=== PATIENT | female | born 1930 | race African-American/Black ===

== ENCOUNTER 2017-11-30 16:42 | Inpatient (IN) | payer MEDICARE ==
[~2017-11-30] VITALS: Ht 160 cm; Wt 67.1 kg
[~2017-11-30 16:42] MED LIST: OLME1TAB30
[2017-11-30 18:15] LABS: HEMOGLOBIN. 10.6 g/dL (12.0-16.0); MEAN CORPUSCULAR HEMOGLOBIN 29.1 pg (28.0-32.0); MEAN CORPUSCULAR VOLUME 87.9 fL (81.0-99.0); MEAN PLATELET VOLUME 9.2 fl (7.4-10.4); PLATELET 226 x1000/uL (130-400); RED BLOOD CELL COUNT 3.64 mill/uL (4.2-5.4); RED CELL DISTRIBUTION WIDTH 15.8 % (11.6-14.6)
[2017-11-30 18:18] LABS: CHLORIDE 107 mEq/L (98-107)
[2017-11-30 18:19] LABS: INR 1.1
[2017-11-30] MEDS ORDERED: SODIUM CHLORIDE 0.9% 1000ML BAG (SEPSIS BOLUS) IV ONE (18:45)
[2017-11-30 18:46] LABS: PLATELET ESTIMATE NORMAL
[2017-12-01 04:37] LABS: CLARITY URINE TURBID (CLEAR); COLOR URINE ORANGE (YELLOW); KETONES URINE NEGATIVE (NEGATIVE); LEUKOCYTE ESTERASE URINE 3+ (NEGATIVE); NITRITE URINE NEGATIVE (NEGATIVE); OCCULT BLOOD URINE 3+ (NEGATIVE); PROTEIN URINE 2+ (NEGATIVE); SPECIFIC GRAVITY URINE 1.016 (1.005-1.030)
[2017-12-01 08:30] VITALS: BP 140/64
[2017-12-01 09:29] VITALS: BP 140/64
[2017-12-01] MEDS: DOCUSATE SODIUM 100MG CAPSULE PO SCH ×2 (10:00→17:00)
[2017-12-01] MEDS ORDERED: ONDANSETRON HCL 4MG/2ML VIAL IV PRN (10:30)
[2017-12-01] MEDS ORDERED: ACETAMINOPHEN 325MG TABLET PO PRN (10:30)
[2017-12-01] MEDS: CARVEDILOL 12.5MG TABLET PO SCH ×2 (11:21→20:55)
[2017-12-01] MEDS: HYDRALAZINE HCL 25MG TABLET PO SCH ×2 (11:22→20:55)
[2017-12-01] MEDS ORDERED: MVI, ADULT NO.1 10 ML in DEXT 5%/0.45% NACL 1000ML 1,000 ML IV SCH ×2 (12:00)
[2017-12-01 12:10] VITALS: BP 112/50
[2017-12-01 13:19] LABS: CREATINE KINASE 145 IU/L (26-192)
[2017-12-01 13:20] LABS: CREATINE KINASE MB FRACTION 3.6 ng/mL (0.5-3.6)
[2017-12-01 13:48] LABS: CLARITY URINE TURBID (CLEAR); COLOR URINE ORANGE (YELLOW); KETONES URINE NEGATIVE (NEGATIVE); LEUKOCYTE ESTERASE URINE 3+ (NEGATIVE); NITRITE URINE POSITIVE (NEGATIVE); OCCULT BLOOD URINE 3+ (NEGATIVE); PROTEIN URINE 2+ (NEGATIVE); SPECIFIC GRAVITY URINE 1.016 (1.005-1.030)
[2017-12-01] MEDS ORDERED: IPRATROPIUM/ALBUTEROL 0.5-3(2.5)MG/3ML NEB HHN PRN (15:15)
[2017-12-01 16:00] VITALS: BP 116/45
[2017-12-01 16:29] VITALS: BP 116/46
[2017-12-01] MEDS ORDERED: ZOSYN (PIPERACILLIN/TAZOBACTAM) XX SCH (18:00)
[2017-12-01 20:00] VITALS: BP 132/72
[2017-12-01] MEDS: PIPERACILLIN/TAZ 2.25G PREMIX 50 ML IV SCH (20:45)
[2017-12-01] MEDS: AMLODIPINE 10MG TABLET PO SCH (20:55)
[2017-12-01 22:16] LABS: CREATINE KINASE 146 IU/L (26-192)
[2017-12-01 22:17] LABS: CREATINE KINASE MB FRACTION 3.2 ng/mL (0.5-3.6)
[2017-12-01] MEDS: DEXT 5%/0.45% NACL 1000ML 1,000 ML IV SCH (23:59)
[2017-12-02] VITALS: BP 105/57
[2017-12-02] MEDS: PIPERACILLIN/TAZ 2.25G PREMIX 50 ML IV SCH ×2 (02:45→08:57)
[2017-12-02 04:00] VITALS: BP 106/44
[2017-12-02 06:02] LABS: INR 1.1; PROTHROMBIN TIME 11.3 sec (9.4-11.6)
[2017-12-02 06:09] LABS: HEMATOCRIT. 28.7 % (36.0-48.0); HEMOGLOBIN. 9.8 g/dL (12.0-16.0); MEAN CORPUSCULAR HEMOGLOBIN 29.8 pg (28.0-32.0); MEAN PLATELET VOLUME 9.1 fl (7.4-10.4); PLATELET 221 x1000/uL (130-400); RED CELL DISTRIBUTION WIDTH 16.1 % (11.6-14.6)
[2017-12-02 06:39] LABS: CHLORIDE 111 mEq/L (98-107)
[2017-12-02 06:48] LABS: CREATINE KINASE 169 IU/L (26-192); LDL CHOLESTEROL 57 mg/dL (5-100)
[2017-12-02 06:49] LABS: HDL CHOLESTEROL 13 mg/dL (40-59)
[2017-12-02 06:50] LABS: PHOSPHORUS 4.6 mg/dL (2.5-4.9)
[2017-12-02 06:56] LABS: CREATINE KINASE MB FRACTION 1.4 ng/mL (0.5-3.6)
[2017-12-02 06:57] LABS: TOTAL IRON BINDING CAPACITY 197 ug/dL (250-450)
[2017-12-02 06:58] LABS: T4 FREE 1.01 ng/dL (0.76-1.46)
[2017-12-02 07:41] VITALS: BP 106/48
[2017-12-02] MEDS: DEXT 5%/0.45% NACL 1000ML 1,000 ML IV SCH (08:56)
[2017-12-02] MEDS: CARVEDILOL 12.5MG TABLET PO SCH ×2 (09:00→21:12)
[2017-12-02] MEDS: HYDRALAZINE HCL 25MG TABLET PO SCH ×2 (09:00→21:11)
[2017-12-02] MEDS: DOCUSATE SODIUM 100MG CAPSULE PO SCH ×2 (09:00→17:00)
[2017-12-02] MEDS ORDERED: DEXT 5%/0.2% NACL 1,000 ML IV SCH (10:45)
[2017-12-02 11:28] VITALS: BP 107/48
[2017-12-02] MEDS: SODIUM BICARBONATE 100 MEQ in DEXT 5%/0.2% NACL 1,000 ML IV SCH (13:03)
[2017-12-02] MEDS ORDERED: PIPERACILLIN/TAZ 2.25G PREMIX 50 ML IV SCH (14:00)
[2017-12-02 15:15] VITALS: BP 111/51
[2017-12-02] MEDS: AMPICILLIN 2,000 MG in SODIUM CHLORIDE 0.9% 100 ML IV SCH (18:54)
[2017-12-02 19:07] LABS: PLATELET ESTIMATE NORMAL
[2017-12-02 20:00] VITALS: BP 120/57
[2017-12-02] MEDS: AMLODIPINE 10MG TABLET PO SCH (21:12)
[2017-12-03] VITALS: BP 115/52
[2017-12-03] MEDS: SODIUM BICARBONATE 100 MEQ in DEXT 5%/0.2% NACL 1,000 ML IV SCH (02:04)
[2017-12-03 04:00] VITALS: BP 122/88
[2017-12-03] MEDS: AMPICILLIN 2,000 MG in SODIUM CHLORIDE 0.9% 100 ML IV SCH ×2 (06:07→19:03)
[2017-12-03 08:00] VITALS: BP 127/49
[2017-12-03 08:10] LABS: CHLORIDE 111 mEq/L (98-107)
[2017-12-03 08:11] LABS: HEMATOCRIT. 28.9 % (36.0-48.0); HEMOGLOBIN. 9.6 g/dL (12.0-16.0); MEAN CORPUSCULAR HEMOGLOBIN 28.9 pg (28.0-32.0); MEAN CORPUSCULAR VOLUME 86.6 fL (81.0-99.0); MEAN PLATELET VOLUME 8.8 fl (7.4-10.4); PLATELET 234 x1000/uL (130-400); RED BLOOD CELL COUNT 3.34 mill/uL (4.2-5.4); RED CELL DISTRIBUTION WIDTH 15.8 % (11.6-14.6)
[2017-12-03 08:19] LABS: AMMONIA 34 uMol/L (<32)
[2017-12-03] MEDS: DOCUSATE SODIUM 100MG CAPSULE PO SCH ×2 (09:18→19:03)
[2017-12-03] MEDS: HYDRALAZINE HCL 25MG TABLET PO SCH ×2 (09:19→22:07)
[2017-12-03] MEDS: CARVEDILOL 12.5MG TABLET PO SCH ×2 (09:19→22:07)
[2017-12-03 09:25] LABS: ATYPICAL LYMPHOCYTES 1; PLATELET ESTIMATE NORMAL
[2017-12-03 09:59] LABS: HEPATITIS B SURFACE ANTIGEN NEGATIVE
[2017-12-03 10:27] LABS: HEPATITIS B CORE AB IGM NEGATIVE
[2017-12-03 10:29] LABS: HEPATITIS A AB IGM NEGATIVE (NEGATIVE)
[2017-12-03 12:00] VITALS: BP 109/53
[2017-12-03] MEDS: POTASSIUM ACETATE IV SCH (13:13)
[2017-12-03] MEDS: SODIUM BICARBONATE IV SCH (13:13)
[2017-12-03] MEDS: DEXT IV SCH (13:13)
[2017-12-03] MEDS: NACL IV SCH (13:13)
[2017-12-03 16:00] VITALS: BP 128/51
[2017-12-03 20:11] VITALS: BP 134/65
[2017-12-03] MEDS ORDERED: ALBUMIN HUMAN 12.5GM/50ML (25%) IV ONE (21:43)
[2017-12-03] MEDS: LACTULOSE 20G/30ML UDC PO SCH (22:07)
[2017-12-03] MEDS: AMLODIPINE 10MG TABLET PO SCH (23:30)
[2017-12-04] VITALS: BP 112/41
[2017-12-04] MEDS: ALBUMIN HUMAN 12.5GM/50ML (25%) IV SCH ×3 (00:26→18:22)
[2017-12-04] MEDS: DEXT IV SCH (00:50)
[2017-12-04] MEDS: NACL IV SCH (00:50)
[2017-12-04] MEDS: SODIUM BICARBONATE IV SCH (00:50)
[2017-12-04] MEDS: POTASSIUM ACETATE IV SCH (00:50)
[2017-12-04 04:38] VITALS: BP 127/64
[2017-12-04] MEDS: AMPICILLIN 2,000 MG in SODIUM CHLORIDE 0.9% 100 ML IV SCH ×2 (06:04→18:22)
[2017-12-04] MEDS: LACTULOSE 20G/30ML UDC PO SCH (06:07)
[2017-12-04 07:08] LABS: HEMOGLOBIN. 9.1 g/dL (12.0-16.0); MEAN CORPUSCULAR HEMOGLOBIN 29.1 pg (28.0-32.0); MEAN CORPUSCULAR VOLUME 86.5 fL (81.0-99.0); MEAN PLATELET VOLUME 8.6 fl (7.4-10.4); PLATELET 260 x1000/uL (130-400); RED BLOOD CELL COUNT 3.12 mill/uL (4.2-5.4); RED CELL DISTRIBUTION WIDTH 16.1 % (11.6-14.6)
[2017-12-04 07:28] LABS: CHLORIDE 107 mEq/L (98-107)
[2017-12-04 07:36] LABS: AMMONIA 32 uMol/L (<32)
[2017-12-04 07:48] LABS: PHOSPHORUS 3.7 mg/dL (2.5-4.9)
[2017-12-04 07:58] VITALS: BP 115/45
[2017-12-04 08:31] LABS: PREALBUMIN 6.7 mg/dL (20.0-40.0)
[2017-12-04] MEDS: CARVEDILOL 12.5MG TABLET PO SCH ×2 (09:00→21:24)
[2017-12-04] MEDS: DOCUSATE SODIUM 100MG CAPSULE PO SCH ×2 (09:00→18:21)
[2017-12-04] MEDS: HYDRALAZINE HCL 25MG TABLET PO SCH ×2 (09:00→21:24)
[2017-12-04 12:07] VITALS: BP 118/45
[2017-12-04] MEDS: DEXT 5%/0.45% NACL 1000ML 1,000 ML IV SCH ×2 (14:18→23:54)
[2017-12-04] MEDS ORDERED: KCL 20MEQ/100ML PREMIX 100 ML IV SCH (15:00)
[2017-12-04 16:00] VITALS: BP 142/69
[2017-12-04] MEDS ORDERED: LACTULOSE 20G/30ML UDC PO SCH (18:00)
[2017-12-04 19:09] LABS: PLATELET ESTIMATE NORMAL
[2017-12-04 20:18] VITALS: BP 146/60
[2017-12-04] MEDS: AMLODIPINE 10MG TABLET PO SCH (21:24)
[2017-12-05 00:09] VITALS: BP 129/48
[2017-12-05 04:47] VITALS: BP 145/60
[2017-12-05] MEDS: AMPICILLIN 2,000 MG in SODIUM CHLORIDE 0.9% 100 ML IV SCH (05:11)
[2017-12-05 06:42] LABS: BASOPHILS % 0.5 % (0.0-2.0); HEMATOCRIT. 27.4 % (36.0-48.0); HEMOGLOBIN. 9.4 g/dL (12.0-16.0); LYMPHOCYTES % 8.5 % (20.0-50.0); MEAN CORPUSCULAR HEMOGLOBIN 29.8 pg (28.0-32.0); MEAN CORPUSCULAR VOLUME 86.7 fL (81.0-99.0); MEAN PLATELET VOLUME 8.6 fl (7.4-10.4); MONOCYTES % 2.2 % (2.0-8.0); NEUTROPHILS % 86.8 % (40.0-76.0); PLATELET 287 x1000/uL (130-400); RED BLOOD CELL COUNT 3.16 mill/uL (4.2-5.4); RED CELL DISTRIBUTION WIDTH 16.1 % (11.6-14.6)
[2017-12-05 07:58] LABS: PHOSPHORUS 3.5 mg/dL (2.5-4.9)
[2017-12-05 08:51] VITALS: BP 151/61
[2017-12-05] MEDS: DEXT 5%/0.45% NACL 1000ML 1,000 ML IV SCH (09:29)
[2017-12-05] MEDS: CARVEDILOL 12.5MG TABLET PO SCH (09:30)
[2017-12-05] MEDS: DOCUSATE SODIUM 100MG CAPSULE PO SCH (09:31)
[2017-12-05] MEDS: ALBUMIN HUMAN 12.5GM/50ML (25%) IV SCH (09:31)
[2017-12-05] MEDS: HYDRALAZINE HCL 25MG TABLET PO SCH (09:31)
== END 2017-12-05 13:00 | DRG 871 ==
LOC: ER 18:44 → 6WST 20:21 → EDBEDREQ 20:24 → EDBEDREQTM 20:24
PROVIDERS: ADMIT Internal Medicine; ATTEND Internal Medicine
DX: A41.50 Gram-negative sepsis, unspecified (principal); E43 Unspecified severe protein-calorie malnutrition; N17.9 Acute kidney failure, unspecified; G92 Toxic encephalopathy; E87.5 Hyperkalemia; E86.0 Dehydration; R13.10 Dysphagia, unspecified; I27.20 Pulmonary hypertension, unspecified; N39.0 Urinary tract infection, site not specified; N13.30 Unspecified hydronephrosis; D64.9 Anemia, unspecified; I11.9 Hypertensive heart disease without heart failure; B96.20 Unspecified Escherichia coli [E. coli] as the cause of diseases classified elsewhere; E87.6 Hypokalemia; F03.90 Unspecified dementia, unspecified severity, without behavioral disturbance, psychotic disturbance, mood disturbance, and anxiety; I13.10 Hypertensive heart and chronic kidney disease without heart failure, with stage 1 through stage 4 chronic kidney disease, or unspecified chronic kidney disease; N18.9 Chronic kidney disease, unspecified; R26.9 Unspecified abnormalities of gait and mobility; Z68.26 Body mass index [BMI] 26.0-26.9, adult
CPT/HCPCS: 36415; 70450; 70551; 71045; 76770; 80048; 80053; 80061; 80076; 81003; 82140; 82550; 82553; 82570; 82607; 82746; 83036; 83540; 83550; 83605; 83690; 83735; 84100; 84134; 84300; 84439; 84443; 84481; 84484; 84540; 85025; 85610; 85651; 86705; 86709; 86803; 87040; 87077; 87086; 87186; 87340; 92610; 93005; 93306; 93970; 96360; 96361; 97116; 97162; 97166; 97530; 99291; C1893; J0290; J2543; J3480; J3490; J7030; J7050; P9047; A4315

== ENCOUNTER 2017-12-05 13:12 | Inpatient (IN) | payer MEDICARE ==
[~2017-12-05] VITALS: Ht 160 cm; Wt 67.1 kg
[2017-12-05 13:12] VITALS: BP 154/61
[2017-12-05] MEDS ORDERED: ONDANSETRON HCL 4MG TABLET PO PRN (14:30)
[2017-12-05] MEDS ORDERED: ACETAMINOPHEN 650MG/20.3ML UDC PO PRN (14:30)
[2017-12-05] MEDS ORDERED: IPRATROPIUM/ALBUTEROL 0.5-3(2.5)MG/3ML NEB HHN PRN (14:30)
[2017-12-05] MEDS: DOCUSATE SODIUM 100MG CAPSULE PO SCH (17:01)
[2017-12-05] MEDS: PANTOPRAZOLE 40MG DR TABLET PO SCH (17:01)
[2017-12-05] MEDS: ALBUMIN HUMAN 12.5GM/50ML (25%) IV SCH (17:54)
[2017-12-05] MEDS: LACTULOSE 20G/30ML UDC PO SCH (19:24)
[2017-12-05 20:00] VITALS: BP 147/65
[2017-12-05] MEDS: CARVEDILOL 12.5MG TABLET PO SCH (21:00)
[2017-12-05] MEDS: AMLODIPINE 10MG TABLET PO SCH (21:00)
[2017-12-05] MEDS: HYDRALAZINE HCL 25MG TABLET PO SCH (22:42)
[2017-12-06] MEDS: PANTOPRAZOLE 40MG DR TABLET PO SCH (06:29)
[2017-12-06 06:31] LABS: HEMATOCRIT. 28.2 % (36.0-48.0); HEMOGLOBIN. 9.4 g/dL (12.0-16.0); MEAN CORPUSCULAR HEMOGLOBIN 29.4 pg (28.0-32.0); MEAN CORPUSCULAR VOLUME 87.6 fL (81.0-99.0); MEAN PLATELET VOLUME 8.3 fl (7.4-10.4); PLATELET 330 x1000/uL (130-400); RED BLOOD CELL COUNT 3.22 mill/uL (4.2-5.4)
[2017-12-06 07:05] LABS: CHLORIDE 112 mEq/L (98-107)
[2017-12-06 07:09] LABS: AMMONIA < 10 uMol/L (<32)
[2017-12-06 07:22] LABS: PREALBUMIN 10.6 mg/dL (20.0-40.0)
[2017-12-06 08:00] VITALS: BP 145/56
[2017-12-06] MEDS: HYDRALAZINE HCL 25MG TABLET PO SCH ×2 (10:16→20:52)
[2017-12-06] MEDS: DOCUSATE SODIUM 100MG CAPSULE PO SCH ×2 (10:16→17:24)
[2017-12-06] MEDS: CARVEDILOL 12.5MG TABLET PO SCH ×2 (10:17→20:52)
[2017-12-06] MEDS: ALBUMIN HUMAN 12.5GM/50ML (25%) IV SCH ×2 (10:19→17:23)
[2017-12-06] MEDS ORDERED: LEVOFLOXACIN 500MG TABLET PO SCH (11:00)
[2017-12-06] MEDS ORDERED: POTASSIUM CHLORIDE 20MEQ TABLET SR PO NR (13:15)
[2017-12-06 15:47] LABS: ATYPICAL LYMPHOCYTES 1; PLATELET ESTIMATE NORMAL
[2017-12-06] MEDS: LACTULOSE 20G/30ML UDC PO SCH (17:25)
[2017-12-06 20:00] VITALS: BP 132/59
[2017-12-06] MEDS: AMLODIPINE 10MG TABLET PO SCH (20:51)
[2017-12-06 22:14] LABS: CLARITY URINE CLEAR (CLEAR); COLOR URINE YELLOW (YELLOW); KETONES URINE NEGATIVE (NEGATIVE); LEUKOCYTE ESTERASE URINE 1+ (NEGATIVE); NITRITE URINE NEGATIVE (NEGATIVE); OCCULT BLOOD URINE NEGATIVE (NEGATIVE); PROTEIN URINE TRACE (NEGATIVE); SPECIFIC GRAVITY URINE 1.014 (1.005-1.030); UROBILINOGEN URINE 0.2 E.U./dL (0.2-1.0)
[2017-12-07 07:51] LABS: BASOPHILS % 0.4 % (0.0-2.0); EOSINOPHILS % 0.9 % (0.0-5.0); HEMATOCRIT. 25.4 % (36.0-48.0); HEMOGLOBIN. 8.5 g/dL (12.0-16.0); LYMPHOCYTES % 9.9 % (20.0-50.0); MEAN CORPUSCULAR HEMOGLOBIN 29.2 pg (28.0-32.0); MEAN CORPUSCULAR VOLUME 87.1 fL (81.0-99.0); MONOCYTES % 5.2 % (2.0-8.0); NEUTROPHILS % 83.6 % (40.0-76.0); PLATELET 346 x1000/uL (130-400); RED BLOOD CELL COUNT 2.92 mill/uL (4.2-5.4); RED CELL DISTRIBUTION WIDTH 16.4 % (11.6-14.6)
[2017-12-07 08:00] VITALS: BP 133/68
[2017-12-07 08:17] LABS: PHOSPHORUS 3.2 mg/dL (2.5-4.9)
[2017-12-07] MEDS: ALBUMIN HUMAN 12.5GM/50ML (25%) IV SCH ×2 (08:18→17:51)
[2017-12-07] MEDS: CARVEDILOL 12.5MG TABLET PO SCH ×2 (08:19→21:10)
[2017-12-07] MEDS: DOCUSATE SODIUM 100MG CAPSULE PO SCH ×2 (08:20→17:51)
[2017-12-07] MEDS: FAMOTIDINE 20MG TABLET PO SCH (08:20)
[2017-12-07] MEDS: HYDRALAZINE HCL 25MG TABLET PO SCH ×2 (08:20→21:10)
[2017-12-07 10:03] LABS: FOLIC ACID (FOLATE) SERUM 12.4 ng/mL (>5.38)
[2017-12-07] MEDS: LEVOFLOXACIN 500MG TABLET PO SCH (10:24)
[2017-12-07] MEDS ORDERED: DEXT 5% WATER 500 ML IV ONE (12:00)
[2017-12-07 20:00] VITALS: BP 142/64
[2017-12-07] MEDS: AMLODIPINE 10MG TABLET PO SCH (21:10)
[2017-12-08 07:14] LABS: T4 FREE 1.11 ng/dL (0.76-1.46)
[2017-12-08 07:36] LABS: BASOPHILS % 0.6 % (0.0-2.0); EOSINOPHILS % 1.3 % (0.0-5.0); HEMATOCRIT. 24.6 % (36.0-48.0); HEMOGLOBIN. 8.3 g/dL (12.0-16.0); LYMPHOCYTES % 11.1 % (20.0-50.0); MEAN CORPUSCULAR HEMOGLOBIN 29.7 pg (28.0-32.0); MONOCYTES % 4.7 % (2.0-8.0); NEUTROPHILS % 82.3 % (40.0-76.0); PLATELET 360 x1000/uL (130-400); RED BLOOD CELL COUNT 2.79 mill/uL (4.2-5.4); RED CELL DISTRIBUTION WIDTH 16.5 % (11.6-14.6)
[2017-12-08 08:00] VITALS: BP 130/55
[2017-12-08] MEDS: FAMOTIDINE 20MG TABLET PO SCH (08:49)
[2017-12-08] MEDS: DOCUSATE SODIUM 100MG CAPSULE PO SCH ×2 (08:49→16:53)
[2017-12-08] MEDS: HYDRALAZINE HCL 25MG TABLET PO SCH ×2 (08:50→21:11)
[2017-12-08] MEDS: CARVEDILOL 12.5MG TABLET PO SCH ×2 (08:50→21:11)
[2017-12-08] MEDS: LEVOFLOXACIN 500MG TABLET PO SCH (12:12)
[2017-12-08 20:00] VITALS: BP 164/66
[2017-12-08] MEDS: AMLODIPINE 10MG TABLET PO SCH (21:00)
[2017-12-09 07:16] LABS: BASOPHILS % 0.9 % (0.0-2.0); EOSINOPHILS % 1.3 % (0.0-5.0); HEMATOCRIT. 25.7 % (36.0-48.0); HEMOGLOBIN. 8.6 g/dL (12.0-16.0); LYMPHOCYTES % 13.7 % (20.0-50.0); MEAN CORPUSCULAR HEMOGLOBIN 29.7 pg (28.0-32.0); MEAN CORPUSCULAR VOLUME 88.3 fL (81.0-99.0); MEAN PLATELET VOLUME 8.5 fl (7.4-10.4); MONOCYTES % 5.2 % (2.0-8.0); NEUTROPHILS % 78.9 % (40.0-76.0); PLATELET 413 x1000/uL (130-400); RED BLOOD CELL COUNT 2.91 mill/uL (4.2-5.4); RED CELL DISTRIBUTION WIDTH 16.9 % (11.6-14.6)
[2017-12-09 07:43] LABS: CHLORIDE 117 mEq/L (98-107)
[2017-12-09 07:51] LABS: TOTAL IRON BINDING CAPACITY 146 ug/dL (250-450)
[2017-12-09 08:00] VITALS: BP 141/90
[2017-12-09] MEDS: FAMOTIDINE 20MG TABLET PO SCH (08:24)
[2017-12-09] MEDS: DOCUSATE SODIUM 100MG CAPSULE PO SCH ×2 (08:24→16:20)
[2017-12-09] MEDS: CARVEDILOL 12.5MG TABLET PO SCH ×2 (08:25→20:52)
[2017-12-09] MEDS: HYDRALAZINE HCL 25MG TABLET PO SCH ×2 (08:25→20:51)
[2017-12-09] MEDS: LEVOFLOXACIN 500MG TABLET PO SCH (11:17)
[2017-12-09 12:26] LABS: CLARITY URINE CLEAR (CLEAR); COLOR URINE YELLOW (YELLOW); KETONES URINE NEGATIVE (NEGATIVE); LEUKOCYTE ESTERASE URINE 1+ (NEGATIVE); NITRITE URINE NEGATIVE (NEGATIVE); OCCULT BLOOD URINE NEGATIVE (NEGATIVE); PROTEIN URINE NEGATIVE (NEGATIVE); SPECIFIC GRAVITY URINE 1.016 (1.005-1.030); UROBILINOGEN URINE 0.2 E.U./dL (0.2-1.0)
[2017-12-09 20:00] VITALS: BP 126/72
[2017-12-09] MEDS: AMLODIPINE 10MG TABLET PO SCH (20:52)
[2017-12-10 06:54] LABS: EOSINOPHILS % 1.2 % (0.0-5.0); HEMATOCRIT. 24.2 % (36.0-48.0); HEMOGLOBIN. 8.1 g/dL (12.0-16.0); LYMPHOCYTES % 16.4 % (20.0-50.0); MEAN CORPUSCULAR HEMOGLOBIN 29.4 pg (28.0-32.0); MEAN CORPUSCULAR VOLUME 87.9 fL (81.0-99.0); MEAN PLATELET VOLUME 8.2 fl (7.4-10.4); MONOCYTES % 6.4 % (2.0-8.0); PLATELET 421 x1000/uL (130-400); RED BLOOD CELL COUNT 2.76 mill/uL (4.2-5.4); RED CELL DISTRIBUTION WIDTH 16.6 % (11.6-14.6)
[2017-12-10 07:43] LABS: AMMONIA 44 uMol/L (<32)
[2017-12-10 08:18] VITALS: BP 136/64
[2017-12-10] MEDS: DOCUSATE SODIUM 100MG CAPSULE PO SCH ×2 (08:51→17:34)
[2017-12-10] MEDS: FAMOTIDINE 20MG TABLET PO SCH (08:51)
[2017-12-10] MEDS: CARVEDILOL 12.5MG TABLET PO SCH ×2 (08:51→20:46)
[2017-12-10] MEDS: HYDRALAZINE HCL 25MG TABLET PO SCH ×2 (08:51→21:53)
[2017-12-10] MEDS: LEVOFLOXACIN 500MG TABLET PO SCH (11:41)
[2017-12-10] MEDS ORDERED: LACTULOSE 20G/30ML UDC PO STA (14:32)
[2017-12-10] MEDS ORDERED: BISACODYL 10MG SUPP PR PRN (14:45)
[2017-12-10] MEDS: NA PHOS,M-B/NA PHOS,DI-BA ENEMA 118ML PR NR ×3 (14:50→15:03)
[2017-12-10] MEDS ORDERED: LEVOFLOXACIN 250MG TABLET PO SCH (19:23)
[2017-12-10 20:00] VITALS: BP 156/61
[2017-12-10] MEDS: POLYETHYLENE GLYCOL 3350 (17GM) 1 DOSE PACK PO SCH (20:46)
[2017-12-10] MEDS: AMLODIPINE 10MG TABLET PO SCH (20:47)
[2017-12-10] MEDS: LACTULOSE 20G/30ML UDC PO SCH (21:53)
[2017-12-11] MEDS ORDERED: EPOETIN ALFA 10000UNITS/ML VIAL SUBCUT SCH (03:00)
[2017-12-11] MEDS: LACTULOSE 20G/30ML UDC PO SCH ×3 (05:03→21:23)
[2017-12-11 08:00] VITALS: BP 123/55
[2017-12-11] MEDS: HYDRALAZINE HCL 25MG TABLET PO SCH ×3 (09:00→21:24)
[2017-12-11] MEDS: CYANOCOBALAMIN/FA/PYRIDOXINE TABLET PO SCH (09:49)
[2017-12-11] MEDS: FERROUS GLUCONATE 324MG TABLET PO SCH ×3 (09:49→17:49)
[2017-12-11] MEDS: DOCUSATE SODIUM 100MG CAPSULE PO SCH ×2 (09:49→17:49)
[2017-12-11] MEDS: FAMOTIDINE 20MG TABLET PO SCH (09:49)
[2017-12-11] MEDS: CARVEDILOL 12.5MG TABLET PO SCH ×2 (09:49→21:24)
[2017-12-11 12:06] LABS: BASOPHILS % 0.8 % (0.0-2.0); EOSINOPHILS % 1.5 % (0.0-5.0); HEMATOCRIT. 24.9 % (36.0-48.0); HEMOGLOBIN. 8.3 g/dL (12.0-16.0); LYMPHOCYTES % 18.5 % (20.0-50.0); MEAN CORPUSCULAR HEMOGLOBIN 29.4 pg (28.0-32.0); MEAN CORPUSCULAR VOLUME 88.4 fL (81.0-99.0); MEAN PLATELET VOLUME 7.9 fl (7.4-10.4); MONOCYTES % 7.4 % (2.0-8.0); NEUTROPHILS % 71.8 % (40.0-76.0); PLATELET 432 x1000/uL (130-400); RED BLOOD CELL COUNT 2.81 mill/uL (4.2-5.4); RED CELL DISTRIBUTION WIDTH 16.7 % (11.6-14.6)
[2017-12-11 13:02] LABS: CHLORIDE 117 mEq/L (98-107)
[2017-12-11] MEDS: LEVOFLOXACIN 250MG TABLET PO SCH (13:04)
[2017-12-11 13:11] LABS: 25-HYDROXY VITAMIN D3 4.2 ng/mL (.)
[2017-12-11 13:14] LABS: AMMONIA 23 uMol/L (<32)
[2017-12-11] MEDS: CALCIUM CARBONATE/VITAMIN D3 500MG TABLET PO SCH (17:49)
[2017-12-11] MEDS: ERGOCALCIFEROL 50000UNITS CAPSULE PO SCH (17:55)
[2017-12-11 20:00] VITALS: BP 139/69
[2017-12-11] MEDS: POLYETHYLENE GLYCOL 3350 (17GM) 1 DOSE PACK PO SCH (21:00)
[2017-12-11] MEDS: AMLODIPINE 10MG TABLET PO SCH (21:24)
[2017-12-12] MEDS: LACTULOSE 20G/30ML UDC PO SCH ×3 (06:00→21:31)
[2017-12-12 08:00] VITALS: BP 134/56
[2017-12-12] MEDS: FAMOTIDINE 20MG TABLET PO SCH (08:46)
[2017-12-12] MEDS: CALCIUM CARBONATE/VITAMIN D3 500MG TABLET PO SCH ×2 (08:46→17:29)
[2017-12-12] MEDS: CYANOCOBALAMIN/FA/PYRIDOXINE TABLET PO SCH (08:46)
[2017-12-12] MEDS: FERROUS GLUCONATE 324MG TABLET PO SCH ×3 (08:46→17:29)
[2017-12-12] MEDS: DOCUSATE SODIUM 100MG CAPSULE PO SCH ×2 (08:46→17:29)
[2017-12-12] MEDS: CARVEDILOL 12.5MG TABLET PO SCH ×2 (08:47→21:26)
[2017-12-12] MEDS: HYDRALAZINE HCL 25MG TABLET PO SCH ×2 (08:48→23:34)
[2017-12-12] MEDS: LEVOFLOXACIN 250MG TABLET PO SCH (11:48)
[2017-12-12 20:00] VITALS: BP 142/38
[2017-12-12] MEDS: POLYETHYLENE GLYCOL 3350 (17GM) 1 DOSE PACK PO SCH (21:00)
[2017-12-12] MEDS: EPOETIN ALFA 10000UNITS/ML VIAL SUBCUT SCH (21:00)
[2017-12-12] MEDS: AMLODIPINE 10MG TABLET PO SCH (21:27)
[2017-12-13] MEDS: LACTULOSE 20G/30ML UDC PO SCH ×4 (05:54→21:24)
[2017-12-13 08:00] VITALS: BP 142/70
[2017-12-13] MEDS: FAMOTIDINE 20MG TABLET PO SCH (10:35)
[2017-12-13] MEDS: DOCUSATE SODIUM 100MG CAPSULE PO SCH ×2 (10:35→17:00)
[2017-12-13] MEDS: FERROUS GLUCONATE 324MG TABLET PO SCH ×3 (10:36→18:47)
[2017-12-13] MEDS: CALCIUM CARBONATE/VITAMIN D3 500MG TABLET PO SCH ×2 (10:36→18:47)
[2017-12-13] MEDS: CARVEDILOL 12.5MG TABLET PO SCH ×2 (10:36→21:23)
[2017-12-13] MEDS: HYDRALAZINE HCL 25MG TABLET PO SCH ×2 (10:36→21:23)
[2017-12-13] MEDS: CYANOCOBALAMIN/FA/PYRIDOXINE TABLET PO SCH (10:36)
[2017-12-13] MEDS: LEVOFLOXACIN 250MG TABLET PO SCH (11:00)
[2017-12-13 20:00] VITALS: BP 156/64
[2017-12-13] MEDS: POLYETHYLENE GLYCOL 3350 (17GM) 1 DOSE PACK PO SCH (21:24)
[2017-12-13] MEDS: AMLODIPINE 10MG TABLET PO SCH (21:24)
[2017-12-14] MEDS: LACTULOSE 20G/30ML UDC PO SCH ×4 (06:01→23:55)
[2017-12-14 06:24] LABS: BASOPHILS % 0.1 % (0.0-2.0); EOSINOPHILS % 1.6 % (0.0-5.0); HEMATOCRIT. 24.5 % (36.0-48.0); HEMOGLOBIN. 8.2 g/dL (12.0-16.0); LYMPHOCYTES % 24.9 % (20.0-50.0); MEAN CORPUSCULAR HEMOGLOBIN 29.8 pg (28.0-32.0); MEAN CORPUSCULAR VOLUME 88.9 fL (81.0-99.0); MEAN PLATELET VOLUME 8.5 fl (7.4-10.4); MONOCYTES % 7.2 % (2.0-8.0); NEUTROPHILS % 66.2 % (40.0-76.0); PLATELET 417 x1000/uL (130-400); RED BLOOD CELL COUNT 2.76 mill/uL (4.2-5.4); RED CELL DISTRIBUTION WIDTH 17.1 % (11.6-14.6)
[2017-12-14 07:09] LABS: CHLORIDE 115 mEq/L (98-107)
[2017-12-14 07:18] LABS: AMMONIA 40 uMol/L (<32); PHOSPHORUS 2.6 mg/dL (2.5-4.9)
[2017-12-14 08:32] VITALS: BP 138/87
[2017-12-14 08:50] LABS: CLARITY URINE CLEAR (CLEAR); COLOR URINE YELLOW (YELLOW); KETONES URINE NEGATIVE (NEGATIVE); LEUKOCYTE ESTERASE URINE NEGATIVE (NEGATIVE); NITRITE URINE NEGATIVE (NEGATIVE); OCCULT BLOOD URINE NEGATIVE (NEGATIVE); PH URINE 5.5 (4.5-8.0); PROTEIN URINE NEGATIVE (NEGATIVE); SPECIFIC GRAVITY URINE 1.011 (1.005-1.030); UROBILINOGEN URINE 0.2 E.U./dL (0.2-1.0)
[2017-12-14] MEDS: DOCUSATE SODIUM 100MG CAPSULE PO SCH ×2 (09:21→19:16)
[2017-12-14] MEDS: HYDRALAZINE HCL 25MG TABLET PO SCH ×2 (09:22→22:17)
[2017-12-14] MEDS: CALCIUM CARBONATE/VITAMIN D3 500MG TABLET PO SCH ×2 (09:22→19:16)
[2017-12-14] MEDS: FERROUS GLUCONATE 324MG TABLET PO SCH ×3 (09:22→19:16)
[2017-12-14] MEDS: CYANOCOBALAMIN/FA/PYRIDOXINE TABLET PO SCH (09:22)
[2017-12-14] MEDS: FAMOTIDINE 20MG TABLET PO SCH (09:22)
[2017-12-14] MEDS: CARVEDILOL 12.5MG TABLET PO SCH ×2 (09:22→23:54)
[2017-12-14] MEDS: LEVOFLOXACIN 250MG TABLET PO SCH (11:54)
[2017-12-14] MEDS: MAGNESIUM OXIDE 400MG TABLET PO SCH (19:19)
[2017-12-14 20:00] VITALS: BP 156/67
[2017-12-14] MEDS: POLYETHYLENE GLYCOL 3350 (17GM) 1 DOSE PACK PO SCH (21:00)
[2017-12-14] MEDS: AMLODIPINE 10MG TABLET PO SCH (22:17)
[2017-12-15] MEDS: LACTULOSE 20G/30ML UDC PO SCH ×3 (05:25→17:19)
[2017-12-15 06:42] LABS: AMMONIA 40 uMol/L (<32)
[2017-12-15 08:00] VITALS: BP 153/67
[2017-12-15] MEDS: CALCIUM CARBONATE/VITAMIN D3 500MG TABLET PO SCH ×2 (08:52→17:17)
[2017-12-15] MEDS: FERROUS GLUCONATE 324MG TABLET PO SCH ×3 (08:52→17:17)
[2017-12-15] MEDS: DOCUSATE SODIUM 100MG CAPSULE PO SCH ×2 (08:52→17:17)
[2017-12-15] MEDS: FAMOTIDINE 20MG TABLET PO SCH (08:52)
[2017-12-15] MEDS: MAGNESIUM OXIDE 400MG TABLET PO SCH ×2 (08:52→17:17)
[2017-12-15] MEDS: HYDRALAZINE HCL 25MG TABLET PO SCH ×2 (08:53→21:32)
[2017-12-15] MEDS: CARVEDILOL 12.5MG TABLET PO SCH ×2 (08:53→21:33)
[2017-12-15] MEDS: CYANOCOBALAMIN/FA/PYRIDOXINE TABLET PO SCH (08:53)
[2017-12-15] MEDS: FLUCONAZOLE 100MG TABLET PO SCH (11:27)
[2017-12-15 20:00] VITALS: BP 154/60
[2017-12-15] MEDS: POLYETHYLENE GLYCOL 3350 (17GM) 1 DOSE PACK PO SCH (21:00)
[2017-12-15] MEDS: EPOETIN ALFA 10000UNITS/ML VIAL SUBCUT SCH (21:32)
[2017-12-15] MEDS: AMLODIPINE 10MG TABLET PO SCH (21:32)
[2017-12-16] MEDS: LACTULOSE 20G/30ML UDC PO SCH ×4 (00:33→18:00)
[2017-12-16 08:00] VITALS: BP 157/62
[2017-12-16] MEDS: DOCUSATE SODIUM 100MG CAPSULE PO SCH ×2 (09:25→18:25)
[2017-12-16] MEDS: CALCIUM CARBONATE/VITAMIN D3 500MG TABLET PO SCH ×2 (09:25→18:25)
[2017-12-16] MEDS: MAGNESIUM OXIDE 400MG TABLET PO SCH ×2 (09:25→18:25)
[2017-12-16] MEDS: FLUCONAZOLE 100MG TABLET PO SCH (09:25)
[2017-12-16] MEDS: CYANOCOBALAMIN/FA/PYRIDOXINE TABLET PO SCH (09:25)
[2017-12-16] MEDS: FAMOTIDINE 20MG TABLET PO SCH (09:25)
[2017-12-16] MEDS: HYDRALAZINE HCL 25MG TABLET PO SCH ×2 (09:27→22:03)
[2017-12-16] MEDS: CARVEDILOL 12.5MG TABLET PO SCH ×2 (09:27→21:00)
[2017-12-16] MEDS: FERROUS GLUCONATE 324MG TABLET PO SCH ×3 (09:27→18:25)
[2017-12-16 20:00] VITALS: BP 154/73
[2017-12-16] MEDS: AMLODIPINE 10MG TABLET PO SCH (21:00)
[2017-12-16] MEDS: POLYETHYLENE GLYCOL 3350 (17GM) 1 DOSE PACK PO SCH (22:00)
[2017-12-17] MEDS: LACTULOSE 20G/30ML UDC PO SCH ×4 (05:44→18:00)
[2017-12-17 08:00] VITALS: BP 145/79
[2017-12-17] MEDS: FLUCONAZOLE 100MG TABLET PO SCH (08:47)
[2017-12-17] MEDS: DOCUSATE SODIUM 100MG CAPSULE PO SCH ×2 (08:48→17:00)
[2017-12-17] MEDS: FERROUS GLUCONATE 324MG TABLET PO SCH ×3 (08:48→17:00)
[2017-12-17] MEDS: CARVEDILOL 12.5MG TABLET PO SCH ×2 (08:48→20:28)
[2017-12-17] MEDS: MAGNESIUM OXIDE 400MG TABLET PO SCH ×2 (08:48→17:00)
[2017-12-17] MEDS: HYDRALAZINE HCL 25MG TABLET PO SCH ×2 (08:48→20:28)
[2017-12-17] MEDS: FAMOTIDINE 20MG TABLET PO SCH (08:48)
[2017-12-17] MEDS: CALCIUM CARBONATE/VITAMIN D3 500MG TABLET PO SCH ×2 (08:48→17:00)
[2017-12-17] MEDS: CYANOCOBALAMIN/FA/PYRIDOXINE TABLET PO SCH (08:48)
[2017-12-17 10:04] LABS: BASOPHILS % 0.9 % (0.0-2.0); EOSINOPHILS % 3.2 % (0.0-5.0); HEMATOCRIT. 27.8 % (36.0-48.0); HEMOGLOBIN. 9.3 g/dL (12.0-16.0); LYMPHOCYTES % 31.4 % (20.0-50.0); MEAN CORPUSCULAR HEMOGLOBIN 29.9 pg (28.0-32.0); MEAN CORPUSCULAR VOLUME 89.6 fL (81.0-99.0); MEAN PLATELET VOLUME 8.1 fl (7.4-10.4); MONOCYTES % 7.3 % (2.0-8.0); NEUTROPHILS % 57.2 % (40.0-76.0); PLATELET 364 x1000/uL (130-400); RED BLOOD CELL COUNT 3.11 mill/uL (4.2-5.4); RED CELL DISTRIBUTION WIDTH 16.9 % (11.6-14.6)
[2017-12-17 10:13] LABS: AMMONIA 15 uMol/L (<32)
[2017-12-17 10:17] LABS: CHLORIDE 111 mEq/L (98-107)
[2017-12-17 11:00] VITALS: BP 139/77
[2017-12-17 20:00] VITALS: BP 162/73
[2017-12-17] MEDS: AMLODIPINE 10MG TABLET PO SCH (20:26)
[2017-12-17] MEDS: POLYETHYLENE GLYCOL 3350 (17GM) 1 DOSE PACK PO SCH (20:28)
[2017-12-18 04:00] VITALS: BP 152/63
[2017-12-18] MEDS: EPOETIN ALFA 10000UNITS/ML VIAL SUBCUT SCH (04:47)
[2017-12-18] MEDS: LACTULOSE 20G/30ML UDC PO SCH ×4 (06:00→17:13)
[2017-12-18 08:00] VITALS: BP 140/65
[2017-12-18] MEDS: FLUCONAZOLE 100MG TABLET PO SCH (08:52)
[2017-12-18] MEDS: HYDRALAZINE HCL 25MG TABLET PO SCH ×2 (08:52→22:40)
[2017-12-18] MEDS: CYANOCOBALAMIN/FA/PYRIDOXINE TABLET PO SCH (08:52)
[2017-12-18] MEDS: DOCUSATE SODIUM 100MG CAPSULE PO SCH ×2 (08:52→17:13)
[2017-12-18] MEDS: FERROUS GLUCONATE 324MG TABLET PO SCH ×3 (08:52→17:13)
[2017-12-18] MEDS: FAMOTIDINE 20MG TABLET PO SCH (08:52)
[2017-12-18] MEDS: ERGOCALCIFEROL 50000UNITS CAPSULE PO SCH (08:52)
[2017-12-18] MEDS: CALCIUM CARBONATE/VITAMIN D3 500MG TABLET PO SCH ×2 (08:52→17:13)
[2017-12-18] MEDS: MAGNESIUM OXIDE 400MG TABLET PO SCH ×2 (08:52→17:13)
[2017-12-18] MEDS: CARVEDILOL 12.5MG TABLET PO SCH ×2 (08:53→22:39)
[2017-12-18 20:00] VITALS: BP 165/64
[2017-12-18] MEDS: POLYETHYLENE GLYCOL 3350 (17GM) 1 DOSE PACK PO SCH (21:00)
[2017-12-18] MEDS: AMLODIPINE 10MG TABLET PO SCH (22:39)
[2017-12-19] MEDS: LACTULOSE 20G/30ML UDC PO SCH ×3 (06:00→12:00)
[2017-12-19 06:36] LABS: BASOPHILS % 0.9 % (0.0-2.0); EOSINOPHILS % 5.4 % (0.0-5.0); HEMATOCRIT. 25.3 % (36.0-48.0); HEMOGLOBIN. 8.5 g/dL (12.0-16.0); LYMPHOCYTES % 35.2 % (20.0-50.0); MEAN CORPUSCULAR HEMOGLOBIN 30.4 pg (28.0-32.0); MEAN CORPUSCULAR VOLUME 90.1 fL (81.0-99.0); MEAN PLATELET VOLUME 8.3 fl (7.4-10.4); MONOCYTES % 9.6 % (2.0-8.0); NEUTROPHILS % 48.9 % (40.0-76.0); PLATELET 276 x1000/uL (130-400); RED CELL DISTRIBUTION WIDTH 17.9 % (11.6-14.6)
[2017-12-19 07:06] LABS: CHLORIDE 113 mEq/L (98-107)
[2017-12-19] MEDS: DOCUSATE SODIUM 100MG CAPSULE PO SCH (09:00)
[2017-12-19] MEDS: HYDRALAZINE HCL 25MG TABLET PO SCH (09:09)
[2017-12-19] MEDS: FAMOTIDINE 20MG TABLET PO SCH (09:09)
[2017-12-19] MEDS: FERROUS GLUCONATE 324MG TABLET PO SCH ×2 (09:10→14:26)
[2017-12-19] MEDS: CARVEDILOL 12.5MG TABLET PO SCH (09:10)
[2017-12-19] MEDS: CYANOCOBALAMIN/FA/PYRIDOXINE TABLET PO SCH (09:10)
[2017-12-19] MEDS: CALCIUM CARBONATE/VITAMIN D3 500MG TABLET PO SCH (09:10)
[2017-12-19] MEDS: MAGNESIUM OXIDE 400MG TABLET PO SCH (09:10)
[2017-12-19 09:13] VITALS: BP 149/72
[2017-12-19 13:10] VITALS: BP 149/72
== END 2017-12-19 16:20 | disposition home health service (06) | DRG 91 ==
PROVIDERS: ADMIT Physical Medicine & Rehabilitation Spinal Cord Injury Medicine; ATTEND Internal Medicine
DX: G92 Toxic encephalopathy (principal); A41.9 Sepsis, unspecified organism; N17.0 Acute kidney failure with tubular necrosis; E43 Unspecified severe protein-calorie malnutrition; E87.0 Hyperosmolality and hypernatremia; E72.20 Disorder of urea cycle metabolism, unspecified; E87.2 Acidosis; I27.20 Pulmonary hypertension, unspecified; E83.42 Hypomagnesemia; N13.30 Unspecified hydronephrosis; N39.0 Urinary tract infection, site not specified; B37.49 Other urogenital candidiasis; N18.3 Chronic kidney disease, stage 3 (moderate); R13.10 Dysphagia, unspecified; E86.0 Dehydration; I13.10 Hypertensive heart and chronic kidney disease without heart failure, with stage 1 through stage 4 chronic kidney disease, or unspecified chronic kidney disease; B96.20 Unspecified Escherichia coli [E. coli] as the cause of diseases classified elsewhere; R74.0 Nonspecific elevation of levels of transaminase and lactic acid dehydrogenase [LDH]; E78.5 Hyperlipidemia, unspecified; E55.9 Vitamin D deficiency, unspecified; D50.9 Iron deficiency anemia, unspecified; E87.5 Hyperkalemia; R09.02 Hypoxemia; R41.89 Other symptoms and signs involving cognitive functions and awareness; R26.9 Unspecified abnormalities of gait and mobility; R53.81 Other malaise; D72.829 Elevated white blood cell count, unspecified; D64.9 Anemia, unspecified; E78.00 Pure hypercholesterolemia, unspecified; E86.9 Volume depletion, unspecified; Z68.26 Body mass index [BMI] 26.0-26.9, adult; Z87.440 Personal history of urinary (tract) infections
CPT/HCPCS: 36415; 78306; 80048; 80053; 80061; 80076; 81003; 82140; 82270; 82306; 82550; 82607; 82728; 82746; 83036; 83540; 83550; 83735; 84100; 84134; 84439; 84443; 84481; 84550; 84630; 85025; 87086; 87106; 92523; 93970; 97110; 97112; 97116; 97127; 97162; 97166; 97530; 97535; A9503; C1893; G0515; J0885; J7040; J7060; P9047

== ENCOUNTER 2019-08-28 20:18 | Inpatient (IN) | payer MEDICARE ==
[~2019-08-28] VITALS: Ht 160 cm; Wt 61.2 kg
[2019-08-28] MEDS ORDERED: SODIUM CHLORIDE 0.9% 1,000 ML IV ONE (22:37)
[2019-08-28] MEDS ORDERED: VANCOMYCIN 1 G PREMIX 200 ML IV SCH (22:45)
[2019-08-28 22:55] LABS: BASOPHILS % 0.7 % (0.0-2.0); EOSINOPHILS % 0.6 % (0.0-5.0); HEMATOCRIT. 40.3 % (36.0-48.0); HEMOGLOBIN. 13.4 g/dL (12.0-16.0); LYMPHOCYTES % 10.6 % (20.0-50.0); MEAN CORPUSCULAR VOLUME 90.4 fL (81.0-99.0); MEAN PLATELET VOLUME 9.4 fl (7.4-10.4); MONOCYTES % 6.3 % (2.0-8.0); NEUTROPHILS % 81.8 % (40.0-76.0); PLATELET 253 x1000/uL (130-400); RED BLOOD CELL COUNT 4.46 mill/uL (4.2-5.4); RED CELL DISTRIBUTION WIDTH 14.3 % (11.6-14.6)
[2019-08-28 23:01] LABS: CHLORIDE 111 mEq/L (98-107)
[2019-08-29] VITALS (8 sets, daily range): BP systolic 101–185; BP diastolic 47–75
[2019-08-29 01:23] LABS: CLARITY URINE CLEAR (CLEAR); COLOR URINE YELLOW (YELLOW); KETONES URINE NEGATIVE (NEGATIVE); LEUKOCYTE ESTERASE URINE 1+ (NEGATIVE); NITRITE URINE NEGATIVE (NEGATIVE); OCCULT BLOOD URINE NEGATIVE (NEGATIVE); PROTEIN URINE NEGATIVE (NEGATIVE); SPECIFIC GRAVITY URINE 1.006 (1.005-1.030); UROBILINOGEN URINE 0.2 E.U./dL (0.2-1.0)
[2019-08-29] MEDS ORDERED: CLONIDINE 0.2MG TABLET PO ONE (02:15)
[2019-08-29] MEDS ORDERED: GUAIFENESIN 200MG/10ML SUGAR FREE UDC PO PRN (03:00)
[2019-08-29] MEDS ORDERED: VANCOMYCIN 1 G PREMIX 200 ML IV SCH (03:00)
[2019-08-29] MEDS ORDERED: MAGNESIUM/ALUMINUM HYDROXIDE/SIMETHICONE 30ML UDC PO PRN (03:00)
[2019-08-29] MEDS ORDERED: HYDRALAZINE 20MG/ML VIAL IV PRN (03:00)
[2019-08-29] MEDS ORDERED: CLONIDINE 0.1MG TABLET PO PRN (03:00)
[2019-08-29] MEDS ORDERED: ONDANSETRON HCL 4MG/2ML INJ IV PRN (03:00)
[2019-08-29] MEDS ORDERED: DIPHENHYDRAMINE 50MG/ML VIAL IV PRN (03:00)
[2019-08-29] MEDS: DEXT 5%/0.45% NACL 1000ML 1,000 ML IV SCH ×2 (04:09→16:20)
[2019-08-29] MEDS ORDERED: LEVOFLOXACIN 500MG PREMIX 100 ML IV SCH (05:00)
[2019-08-29] MEDS: HYDRALAZINE HCL 50MG TABLET PO SCH ×2 (10:28→22:05)
[2019-08-29] MEDS: CARVEDILOL 12.5MG TABLET PO SCH ×2 (10:28→22:06)
[2019-08-29] MEDS: AMLODIPINE 10MG TABLET PO SCH (10:29)
[2019-08-29] MEDS: LOSARTAN POTASSIUM 100 MG TABLET PO SCH (10:29)
[2019-08-29] MEDS: ACETAMINOPHEN 325MG TABLET PO PRN (17:51)
[2019-08-29] MEDS: VANCOMYCIN 750 MG PREMIX 150 ML IV SCH (20:44)
[2019-08-30] VITALS: BP 119/35
[2019-08-30 04:00] VITALS: BP 123/65
[2019-08-30] MEDS: DEXT 5%/0.45% NACL 1000ML 1,000 ML IV SCH ×2 (05:19→13:41)
[2019-08-30] MEDS: LEVOFLOXACIN 250MG PREMIX 50 ML IV SCH (05:19)
[2019-08-30 08:00] VITALS: BP 161/71
[2019-08-30] MEDS: HYDRALAZINE HCL 50MG TABLET PO SCH ×2 (09:43→21:11)
[2019-08-30] MEDS: AMLODIPINE 10MG TABLET PO SCH (09:44)
[2019-08-30] MEDS: CARVEDILOL 12.5MG TABLET PO SCH ×2 (09:44→21:11)
[2019-08-30] MEDS: LOSARTAN POTASSIUM 100 MG TABLET PO SCH (09:44)
[2019-08-30 12:00] VITALS: BP 101/56
[2019-08-30 16:00] VITALS: BP 141/66
[2019-08-30 17:39] LABS: VITAMIN B12 SERUM 771 pg/mL (211-911)
[2019-08-30 20:00] VITALS: BP 166/76
[2019-08-30] MEDS: VANCOMYCIN 750 MG PREMIX 150 ML IV SCH (22:59)
[2019-08-31] VITALS (7 sets, daily range): BP systolic 19–159; BP diastolic 42–88
[2019-08-31] MEDS ORDERED: SODIUM CHLORIDE 0.9% 500 ML IV ONE (05:00)
[2019-08-31] MEDS: LEVOFLOXACIN 250MG PREMIX 50 ML IV SCH (05:07)
[2019-08-31 07:31] LABS: INR 1.1; PROTHROMBIN TIME 10.9 sec (9.6-11.0)
[2019-08-31] MEDS ORDERED: LIDOCAINE HCL 1% 20ML VIAL (Pyxis) INJ ONE (08:02)
[2019-08-31] MEDS ORDERED: IODIXANOL 320MG/ML 100 ML BOTTLE IV ONE (08:02)
[2019-08-31] MEDS ORDERED: QUETIAPINE FUMARATE 50MG TABLET PO SCH (08:15)
[2019-08-31] MEDS: CARVEDILOL 12.5MG TABLET PO SCH ×2 (08:32→21:00)
[2019-08-31] MEDS: HYDRALAZINE HCL 50MG TABLET PO SCH ×2 (08:32→21:00)
[2019-08-31] MEDS: AMLODIPINE 10MG TABLET PO SCH (08:32)
[2019-08-31] MEDS: LOSARTAN POTASSIUM 100 MG TABLET PO SCH (08:32)
[2019-08-31] MEDS ORDERED: LEVOTHYROXINE SODIUM 25MCG TABLET PO SCH (09:15)
[2019-08-31] MEDS: DEXT 5%/0.45% NACL 1000ML 1,000 ML IV SCH (15:19)
[2019-08-31] MEDS: VANCOMYCIN 750 MG in DEXT 5% WATER 250 ML IV SCH (20:52)
[2019-09-01] VITALS: BP 94/47
[2019-09-01 04:00] VITALS: BP 94/45
[2019-09-01] MEDS: DEXT 5%/0.45% NACL 1000ML 1,000 ML IV SCH ×2 (06:35→23:51)
[2019-09-01] MEDS: LEVOFLOXACIN 250MG PREMIX 50 ML IV SCH (06:35)
[2019-09-01 08:00] VITALS: BP 169/74
[2019-09-01] MEDS: HYDRALAZINE HCL 50MG TABLET PO SCH ×2 (08:42→21:22)
[2019-09-01] MEDS: LEVOTHYROXINE SODIUM 75MCG TABLET PO SCH (08:42)
[2019-09-01] MEDS: CARVEDILOL 12.5MG TABLET PO SCH ×2 (08:42→21:24)
[2019-09-01] MEDS: AMLODIPINE 10MG TABLET PO SCH (08:43)
[2019-09-01] MEDS: LOSARTAN POTASSIUM 100 MG TABLET PO SCH (08:43)
[2019-09-01 12:00] VITALS: BP 106/77
[2019-09-01 16:00] VITALS: BP 112/78
[2019-09-01 20:00] VITALS: BP 153/62
[2019-09-01] MEDS: ACETAMINOPHEN 325MG TABLET PO PRN (20:00)
[2019-09-01] MEDS: SODIUM CHLORIDE 0.9% 1,000 ML IV SCH (20:08)
[2019-09-01] MEDS: VANCOMYCIN 750 MG in DEXT 5% WATER 250 ML IV SCH (21:20)
[2019-09-02] VITALS: BP 107/59
[2019-09-02 04:00] VITALS: BP 108/51
[2019-09-02] MEDS: LEVOFLOXACIN 250MG PREMIX 50 ML IV SCH (05:17)
[2019-09-02 06:13] LABS: BASOPHILS % 0.4 % (0.0-2.0); EOSINOPHILS % 1.2 % (0.0-5.0); HEMATOCRIT. 38.7 % (36.0-48.0); HEMOGLOBIN. 12.6 g/dL (12.0-16.0); LYMPHOCYTES % 13.6 % (20.0-50.0); MEAN CORPUSCULAR HEMOGLOBIN 29.4 pg (28.0-32.0); MEAN CORPUSCULAR VOLUME 90.2 fL (81.0-99.0); MEAN PLATELET VOLUME 9.8 fl (7.4-10.4); MONOCYTES % 7.3 % (2.0-8.0); NEUTROPHILS % 77.5 % (40.0-76.0); PLATELET 228 x1000/uL (130-400); RED BLOOD CELL COUNT 4.29 mill/uL (4.2-5.4); RED CELL DISTRIBUTION WIDTH 14.9 % (11.6-14.6)
[2019-09-02 08:00] VITALS: BP 130/51
[2019-09-02] MEDS: LEVOTHYROXINE SODIUM 75MCG TABLET PO SCH (08:49)
[2019-09-02] MEDS: LOSARTAN POTASSIUM 100 MG TABLET PO SCH (08:49)
[2019-09-02] MEDS: AMLODIPINE 10MG TABLET PO SCH (08:50)
[2019-09-02] MEDS: CARVEDILOL 12.5MG TABLET PO SCH ×2 (08:50→20:40)
[2019-09-02] MEDS: HYDRALAZINE HCL 50MG TABLET PO SCH ×2 (08:50→20:39)
[2019-09-02 12:00] VITALS: BP 128/58
[2019-09-02 16:00] VITALS: BP 139/69
[2019-09-02] MEDS: DEXT 5%/0.45% NACL 1000ML 1,000 ML IV SCH (18:27)
[2019-09-02 20:00] VITALS: BP 121/67
[2019-09-02] MEDS: VANCOMYCIN 750 MG in DEXT 5% WATER 250 ML IV SCH (20:39)
[2019-09-02] MEDS: SODIUM CHLORIDE 0.9% 1,000 ML IV SCH (20:39)
[2019-09-03] VITALS: BP 116/71
[2019-09-03 04:00] VITALS: BP 124/54
[2019-09-03] MEDS: LEVOFLOXACIN 250MG PREMIX 50 ML IV SCH (05:55)
[2019-09-03] MEDS: LEVOTHYROXINE SODIUM 75MCG TABLET PO SCH ×2 (07:40→08:12)
[2019-09-03] MEDS: CARVEDILOL 12.5MG TABLET PO SCH ×2 (08:11→09:00)
[2019-09-03] MEDS: LOSARTAN POTASSIUM 100 MG TABLET PO SCH ×2 (08:11→09:00)
[2019-09-03] MEDS: AMLODIPINE 10MG TABLET PO SCH ×2 (08:12→09:00)
[2019-09-03] MEDS: HYDRALAZINE HCL 50MG TABLET PO SCH ×2 (08:12→09:00)
[2019-09-03 11:07] VITALS: BP_SYST 132; BP_SYST 141; BP_DIAS 60; BP_DIAS 62
== END 2019-09-03 12:50 | DRG 300 ==
LOC: ER 20:18 → 7WST 08-29 01:29 → ENRESERV 08-29 01:53
PROVIDERS: ADMIT Internal Medicine; ATTEND Internal Medicine
DX: I70.261 Atherosclerosis of native arteries of extremities with gangrene, right leg (principal); N17.9 Acute kidney failure, unspecified; I13.0 Hypertensive heart and chronic kidney disease with heart failure and stage 1 through stage 4 chronic kidney disease, or unspecified chronic kidney disease; L97.419 Non-pressure chronic ulcer of right heel and midfoot with unspecified severity; E44.0 Moderate protein-calorie malnutrition; N18.9 Chronic kidney disease, unspecified; E03.9 Hypothyroidism, unspecified; F03.90 Unspecified dementia, unspecified severity, without behavioral disturbance, psychotic disturbance, mood disturbance, and anxiety; E86.0 Dehydration; I50.9 Heart failure, unspecified; Z90.49 Acquired absence of other specified parts of digestive tract; Z87.891 Personal history of nicotine dependence
CPT/HCPCS: 36415; 71045; 73610; 80048; 80053; 80202; 81003; 82140; 82607; 82962; 84443; 84484; 85025; 93306; 93922; 97110; 97162; 97166; 99285; J0360; J1200; J1956; J3370; J3490; J7030; J7040; J7060; Q9967